=== PATIENT | male | born 1950 | race Caucasian/White ===

== ENCOUNTER 2024-09-08 09:54 | Outpatient (CLI) | payer MEDICARE ==
[2024-09-08] MEDS ORDERED: Magnevist 469MG/ML 20 ML VIAL ONE (10:36)
== END 2024-09-08 09:55 | disposition home or self-care (01) ==
LOC: MRI 09:54
PROVIDERS: ATTEND Internal Medicine Hematology & Oncology
DX: C34.01 Malignant neoplasm of right main bronchus (principal)
CPT/HCPCS: 36415; 70553; 76376; 82565

== ENCOUNTER 2024-09-10 10:18 | Day surgery (SDC) | payer MEDICARE ==
[2024-09-09 10:13] VITALS: BMI 18.5
[2024-09-10] MEDS ORDERED: Lidocaine 4% PF 5 ML AMP ONE (11:21)
[2024-09-10] MEDS ORDERED: Lidocaine 1% MPF 2 ML VIAL ONE (11:22)
[2024-09-10] MEDS ORDERED: Rocuronium Bromide 10 MG/ML (10ML VIAL) ONE (13:09)
[2024-09-10] MEDS ORDERED: Ondansetron PF 4 MG/2 ML Vial ONE (13:09)
[2024-09-10] MEDS ORDERED: PROPOFOL 20 ML ONE (13:09)
[2024-09-10] MEDS ORDERED: Lidocaine 1% PF 5 ML VIAL ONE (13:09)
[2024-09-10] MEDS ORDERED: Dexamethasone 20 MG/5 ML VIAL ONE (13:09)
[2024-09-10] MEDS ORDERED: fentaNYL 50 mcg/mL 1 mL Vial ONE ×2 (13:18→14:50)
[2024-09-10] MEDS ORDERED: fentaNYL PF 100 MCG/2 ML SYRINGE ONE (13:43)
[2024-09-10] MEDS ORDERED: SUGAMMADEX SODIUM 200 MG/2 ML VIAL ONE (13:50)
[2024-09-10] MEDS ORDERED: PHENYLEPHRINE-NS 100 MCG/ML 10 ML SYRINGE ONE (13:50)
[2024-09-17 15:17] LABS: Fungus Stain Final report (.)
== END 2024-09-10 16:50 | disposition home or self-care (01) ==
LOC: SDC 10:18
PROVIDERS: ATTEND Internal Medicine
PROC: 0B9C8ZX Drainage of Right Upper Lung Lobe, Via Natural or Artificial Opening Endoscopic, Diagnostic (ICD-10-PCS; principal; 2024-09-10)
DX: R91.8 Other nonspecific abnormal finding of lung field (principal); R59.0 Localized enlarged lymph nodes; I10 Essential (primary) hypertension; E78.5 Hyperlipidemia, unspecified; J43.9 Emphysema, unspecified; F41.9 Anxiety disorder, unspecified; M19.90 Unspecified osteoarthritis, unspecified site; F17.200 Nicotine dependence, unspecified, uncomplicated; Z85.828 Personal history of other malignant neoplasm of skin; Z98.890 Other specified postprocedural states; Z88.0 Allergy status to penicillin
CPT/HCPCS: 31653; 87070; 87102; 87116; 87205; 87206 ×2; 88333; 88334; 93005; J1100; J2405; J2704; J3010; 88112; 88173; 88305; 88341; 88342; 88360; 93010

== ENCOUNTER 2025-06-18 08:00 | Outpatient (CLI) | payer MEDICARE | END 2025-06-18 08:01 | disposition home or self-care (01) | LOC: PET 08:00 | PROVIDERS: ATTEND Internal Medicine Hematology & Oncology | DX: C34.01 Malignant neoplasm of right main bronchus (principal); F17.210 Nicotine dependence, cigarettes, uncomplicated; N39.0 Urinary tract infection, site not specified; R91.8 Other nonspecific abnormal finding of lung field; C79.51 Secondary malignant neoplasm of bone | CPT/HCPCS: 78815; A9552 ==

== ENCOUNTER 2025-09-08 10:15 | Outpatient (CLI) | payer MEDICARE | END 2025-09-08 10:16 | disposition home or self-care (01) | LOC: PET 10:15 | PROVIDERS: ATTEND Internal Medicine Hematology & Oncology | DX: C34.01 Malignant neoplasm of right main bronchus (principal); F17.210 Nicotine dependence, cigarettes, uncomplicated; N39.0 Urinary tract infection, site not specified | CPT/HCPCS: 78815; A9552 ==

== ENCOUNTER 2025-09-29 09:26 | Outpatient (CLI) | payer MEDICARE | END 2025-09-29 09:27 | disposition home or self-care (01) | LOC: MRI 09:26 | PROVIDERS: ATTEND Internal Medicine Hematology & Oncology | DX: C34.01 Malignant neoplasm of right main bronchus (principal); F17.210 Nicotine dependence, cigarettes, uncomplicated; N39.0 Urinary tract infection, site not specified | CPT/HCPCS: 72197 ==